=== PATIENT | female | born 1985 | race African-American/Black ===

== ENCOUNTER 2022-07-17 17:52 | Inpatient (IN) | payer MEDICAID ==
[~2022-07-17] VITALS: Ht 157.5 cm; Wt 67.1 kg
[2022-07-17] MEDS ORDERED: NOREPINEPHRINE 8MG/250ML PMX 250 ML IV ONE (18:00)
[2022-07-17] MEDS ORDERED: PIPERACILLIN/TAZ 3.375G PREMIX 50 ML IV ONE (18:15)
[2022-07-17] MEDS ORDERED: VANCOMYCIN 1G PREMIX 200 ML IV ONE (18:15)
[2022-07-17] MEDS ORDERED: OCTREOTIDE 1,000 MCG in SODIUM CHLORIDE 0.9% 100 ML IV ONE (18:15)
[2022-07-17] MEDS ORDERED: SODIUM CHLORIDE 0.9% 1000ML BAG (SEPSIS BOLUS) IV ONE (18:15)
[2022-07-17] MEDS ORDERED: OCTREOTIDE 1,000 MCG in SODIUM CHLORIDE 0.9% 98 ML IV NR (18:21)
[2022-07-17 18:31] LABS: MEAN CORPUSCULAR HEMOGLOBIN 24.7 pg (28.0-32.0); MEAN CORPUSCULAR VOLUME 113.4 fL (81.0-99.0); MEAN PLATELET VOLUME 10.5 fl (7.4-10.4); PLATELET 179 x1000/uL (130-400); RED BLOOD CELL COUNT 0.56 mill/uL (4.2-5.4)
[2022-07-17 18:40] LABS: CHLORIDE 98 mEq/L (98-107)
[2022-07-17 18:42] LABS: D-DIMER 0.24 mg/L FEU (<0.50); INR 1.8; PROTHROMBIN TIME 18.8 sec (9.6-11.0)
[2022-07-17 18:44] LABS: BG CARBOXYHEMOGLOBIN 0.8 % (0.5-1.5); BG FRACTION INSPIRED OXYGEN 100; BG METHEMOGLOBIN 0.2 % (0.0-1.5); BG OXYGEN SATURATION 81.8 % (92.0-98.5); BG PH < 6.680 (7.350-7.450); BG PO2 72.4 mmHg (75.0-100.0); BG SAMPLE SITE RIGHT RADIAL; BG TOTAL HEMOGLOBIN 9.1 g/dL (12.0-18.0); BG VENT MODE VENT - AC
[2022-07-17] MEDS ORDERED: PANTOPRAZOLE SODIUM 40 MG/VIAL IV ONE (18:45)
[2022-07-17 18:50] LABS: ETHANOL BLOOD < 10 mg/dL
[2022-07-17 18:59] LABS: HEMATOCRIT. 6.3 % (36.0-48.0); HEMOGLOBIN. 1.4 g/dL (12.0-16.0)
[2022-07-17] MEDS ORDERED: CALCIUM CHLORIDE 1,000 MG in DEXT 5% WATER 90 ML IV ONE (19:15)
[2022-07-17] MEDS ORDERED: INSULIN REGULAR (HUMULIN R) 300UNITS/3ML VIAL IV NR ×2 (19:15→22:15)
[2022-07-17] MEDS ORDERED: SODIUM BICARBONATE 8.4% 1 MEQ/ML 50ML SYR IV NR ×3 (19:15→22:15)
[2022-07-17] MEDS ORDERED: SODIUM BICARBONATE 8.4% 1 MEQ/ML 50ML SYR IV ONE ×2 (19:15)
[2022-07-17 19:17] LABS: HCG SCREEN NEGATIVE
[2022-07-17] MEDS ORDERED: FENTANYL 2500MCG/250ML PMX 250 ML IV ONE (19:30)
[2022-07-17] MEDS ORDERED: MIDAZOLAM HCL 5 MG/5 ML VIAL IV ONE (19:45)
[2022-07-17] MEDS ORDERED: MIDAZOLAM HCL 2 MG/2 ML VIAL IV NR (19:45)
[2022-07-17] MEDS ORDERED: SODIUM BICARBONATE 100 MEQ in DEXTROSE 5% WATER 1,000 ML IV SCH (19:45)
[2022-07-17] MEDS ORDERED: FENTANYL CITRATE/PF 2,500 MCG in SODIUM CHLORIDE 0.9% 200 ML IV NR (19:45)
[2022-07-17] MEDS ORDERED: INSULIN REGULAR (HUMULIN R) 300UNITS/3ML VIAL IV ONE (19:45)
[2022-07-17] MEDS ORDERED: ALBUTEROL (0.083%) 2.5MG/3ML NEB HHN ONE (19:45)
[2022-07-17] MEDS ORDERED: MIDAZOLAM HCL 2 MG/2 ML VIAL IV PRN (21:00)
[2022-07-17] MEDS ORDERED: DEXTROSE 50% WATER 50ML SYRINGE IV NR (22:15)
[2022-07-17] MEDS ORDERED: IPRATROPIUM/ALBUTEROL 0.5-3(2.5)MG/3ML NEB HHN PRN (22:15)
[2022-07-17 22:45] LABS: BG BASE EXCESS -23.4 mmol/L (-2.0-2.0); BG CARBOXYHEMOGLOBIN 0.1 % (0.5-1.5); BG DEOXYHEMOGLOBIN 0.7 % (0.0-5.0); BG FRACTION INSPIRED OXYGEN 100; BG HCO3 ACT 7.4 mmol/L (22.0-26.0); BG METHEMOGLOBIN 1.1 % (0.0-1.5); BG OXYGEN SATURATION 99.3 % (92.0-98.5); BG OXYHEMOGLOBIN 98.1 % (94.0-97.0); BG PCO2 35.6 mmHg (35.0-45.0); BG PH 6.937 (7.350-7.450); BG PO2 288.1 mmHg (75.0-100.0); BG SAMPLE SITE RIGHT RADIAL; BG TOTAL HEMOGLOBIN 8.7 g/dL (12.0-18.0); BG VENT MODE VENT - AC
[2022-07-18] VITALS (96 sets, daily range): BP systolic 50–159; BP diastolic 19–87
[2022-07-18] MEDS ORDERED: PANTOPRAZOLE 80 MG in SODIUM CHLORIDE 0.9% 100 ML IV SCH ×2
[2022-07-18 00:44] LABS: NUCLEATED RED BLOOD CELLS 5 /100 WBC; PLATELET ESTIMATE NORMAL
[2022-07-18] MEDS ORDERED: CEFTRIAXONE 2 G PREMIX 50 ML IV SCH (01:15)
[2022-07-18] MEDS ORDERED: CEFTRIAXONE 2 G in DEXTROSE 5% WATER 50 ML IV SCH (02:00)
[2022-07-18] MEDS: PANTOPRAZOLE 80 MG in SODIUM CHLORIDE 0.9% 100 ML IV SCH ×2 (02:15→11:18)
[2022-07-18 02:27] LABS: BG BASE EXCESS -17.2 mmol/L (-2.0-2.0); BG CARBOXYHEMOGLOBIN 0.3 % (0.5-1.5); BG DEOXYHEMOGLOBIN 4.9 % (0.0-5.0); BG FRACTION INSPIRED OXYGEN 50; BG HCO3 ACT 11.1 mmol/L (22.0-26.0); BG METHEMOGLOBIN 0.5 % (0.0-1.5); BG OXYGEN SATURATION 95.1 % (92.0-98.5); BG OXYHEMOGLOBIN 94.3 % (94.0-97.0); BG PCO2 35.5 mmHg (35.0-45.0); BG PH 7.114 (7.350-7.450); BG PO2 84.1 mmHg (75.0-100.0); BG SAMPLE SITE RIGHT RADIAL; BG TOTAL HEMOGLOBIN 10.8 g/dL (12.0-18.0); BG VENT MODE VENT - APRV
[2022-07-18] MEDS ORDERED: LACTATED RINGERS 1,000 ML IV ONE (02:45)
[2022-07-18] MEDS ORDERED: SODIUM BICARBONATE 8.4% 1 MEQ/ML 50ML SYR IV NR (02:45)
[2022-07-18] MEDS ORDERED: LORAZEPAM 2MG/ML CPJ IV PRN (02:45)
[2022-07-18] MEDS: SODIUM BICARBONATE 150 MEQ in DEXTROSE 5% WATER 1,000 ML IV SCH ×3 (03:13→17:58)
[2022-07-18] MEDS: PHENYLEPHRINE 100 MG in DEXT 5% WATER 240 ML IV PRN ×3 (03:15→16:58)
[2022-07-18] MEDS: PROPOFOL 10MG/ML 100ML 100 ML IV PRN ×3 (03:17→19:48)
[2022-07-18] MEDS: VASOPRESSIN 20 UNIT in SODIUM CHLORIDE 0.9% 99 ML IV PRN ×3 (04:16→22:23)
[2022-07-18 05:31] LABS: BG CARBOXYHEMOGLOBIN 0.3 % (0.5-1.5); BG FRACTION INSPIRED OXYGEN 50; BG METHEMOGLOBIN 0.4 % (0.0-1.5); BG OXYHEMOGLOBIN 95.3 % (94.0-97.0); BG PCO2 33.1 mmHg (35.0-45.0); BG PH 7.329 (7.350-7.450); BG PO2 86.9 mmHg (75.0-100.0); BG SAMPLE SITE LEFT RADIAL; BG TOTAL HEMOGLOBIN 10.1 g/dL (12.0-18.0); BG VENT MODE VENT - AC
[2022-07-18] MEDS: NOREPINEPHRINE 32 MG in DEXT 5% WATER 218 ML IV PRN ×2 (06:23→22:23)
[2022-07-18 07:16] LABS: HEMATOCRIT. 29.1 % (36.0-48.0); HEMOGLOBIN. 9.5 g/dL (12.0-16.0); MEAN CORPUSCULAR HEMOGLOBIN 30.1 pg (28.0-32.0); MEAN CORPUSCULAR VOLUME 92.1 fL (81.0-99.0); MEAN PLATELET VOLUME 9.6 fl (7.4-10.4); PLATELET 97 x1000/uL (130-400); RED BLOOD CELL COUNT 3.17 mill/uL (4.2-5.4); RED CELL DISTRIBUTION WIDTH 14.8 % (11.6-14.6)
[2022-07-18] MEDS ORDERED: LIDOCAINE HCL/PF 1% 10 MG/ML 5ML VIAL ONE (07:52)
[2022-07-18] MEDS: IPRATROPIUM/ALBUTEROL 0.5-3(2.5)MG/3ML NEB HHN SCH ×3 (09:00→22:06)
[2022-07-18] MEDS: LEVETIRACETAM 1000MG PREMIX 100 ML IV SCH ×2 (09:30→20:37)
[2022-07-18 11:11] LABS: PHOSPHORUS 8.1 mg/dL (2.5-4.9)
[2022-07-18] MEDS ORDERED: CALCIUM GLUCONATE 1000 MG in DEXTROSE 5% WATER 100 ML IV NR (13:00)
[2022-07-18] MEDS ORDERED: CALCIUM GLUCONATE 1GM PREMIX 50 ML IV NR (13:00)
[2022-07-18] MEDS ORDERED: MAGNESIUM 2 G PREMIX 50 ML IV NR (13:00)
[2022-07-18 13:12] LABS: HEMATOCRIT 27.1 % (36.0-48.0)
[2022-07-18] MEDS: AMPICILLIN SOD/SULBACTAM NA 3 G in SODIUM CHLORIDE 0.9% 100 ML IV SCH (13:51)
[2022-07-18 13:59] LABS: NUCLEATED RED BLOOD CELLS 5 /100 WBC; PLATELET ESTIMATE DECREASED
[2022-07-18 14:59] LABS: HEPATITIS B SURFACE ANTIGEN NEGATIVE
[2022-07-18] MEDS ORDERED: DAPTOMYCIN 400 MG in SODIUM CHLORIDE 0.9% 50 ML IV SCH (15:00)
[2022-07-18 15:10] LABS: CLARITY URINE TURBID (CLEAR); COLOR URINE YELLOW (YELLOW); KETONES URINE NEGATIVE (NEGATIVE); LEUKOCYTE ESTERASE URINE 3+ (NEGATIVE); NITRITE URINE NEGATIVE (NEGATIVE); OCCULT BLOOD URINE 3+ (NEGATIVE); PH URINE 5.5 (4.5-8.0); PROTEIN URINE 2+ (NEGATIVE); UROBILINOGEN URINE 0.2 E.U./dL (0.2-1.0)
[2022-07-18] MEDS: OCTREOTIDE 1,000 MCG in SODIUM CHLORIDE 0.9% 98 ML IV SCH (15:56)
[2022-07-18] MEDS ORDERED: PHYTONADIONE 10MG/ML AMP SUBCUT NR (18:00)
[2022-07-18] MEDS: PANTOPRAZOLE SODIUM 40 MG/VIAL IV SCH (20:37)
[2022-07-18] MEDS: METOCLOPRAMIDE HCL 10MG/2ML VIAL IV SCH (22:26)
[2022-07-19] VITALS (87 sets, daily range): BP systolic 35–108; BP diastolic 24–67
[2022-07-19 01:21] LABS: HEMOGLOBIN 8.8 g/dL (12.0-16.0)
[2022-07-19 01:29] LABS: INR 3.1; PROTHROMBIN TIME 30.1 sec (9.6-11.0)
[2022-07-19] MEDS: PHENYLEPHRINE 100 MG in DEXT 5% WATER 240 ML IV PRN ×3 (01:57→16:55)
[2022-07-19] MEDS: IPRATROPIUM/ALBUTEROL 0.5-3(2.5)MG/3ML NEB HHN SCH ×4 (02:14→20:48)
[2022-07-19] MEDS: SODIUM BICARBONATE 150 MEQ in DEXTROSE 5% WATER 1,000 ML IV SCH ×3 (04:30→17:33)
[2022-07-19] MEDS: METOCLOPRAMIDE HCL 10MG/2ML VIAL IV SCH ×3 (05:32→22:00)
[2022-07-19 07:02] LABS: INR 3.5; PROTHROMBIN TIME 34.1 sec (9.6-11.0)
[2022-07-19 07:05] LABS: HEMATOCRIT. 22.7 % (36.0-48.0); HEMOGLOBIN. 7.2 g/dL (12.0-16.0); MEAN CORPUSCULAR HEMOGLOBIN 29.4 pg (28.0-32.0); MEAN CORPUSCULAR VOLUME 92.3 fL (81.0-99.0); MEAN PLATELET VOLUME 10.9 fl (7.4-10.4); PLATELET 88 x1000/uL (130-400); RED BLOOD CELL COUNT 2.46 mill/uL (4.2-5.4); RED CELL DISTRIBUTION WIDTH 15.6 % (11.6-14.6)
[2022-07-19 07:11] LABS: CHLORIDE 92 mEq/L (98-107)
[2022-07-19 08:16] LABS: BG BASE EXCESS -15.6 mmol/L (-2.0-2.0); BG CARBOXYHEMOGLOBIN 0.4 % (0.5-1.5); BG HCO3 ACT 10.5 mmol/L (22.0-26.0); BG METHEMOGLOBIN 0.3 % (0.0-1.5); BG OXYHEMOGLOBIN 93.3 % (94.0-97.0); BG PCO2 25.7 mmHg (35.0-45.0); BG PH 7.231 (7.350-7.450); BG PO2 87.4 mmHg (75.0-100.0); BG SAMPLE SITE RIGHT BRACHIAL; BG TOTAL HEMOGLOBIN 6.2 g/dL (12.0-18.0); BG VENT MODE VENT - AC
[2022-07-19] MEDS: VASOPRESSIN 20 UNIT in SODIUM CHLORIDE 0.9% 99 ML IV PRN ×2 (08:57→21:00)
[2022-07-19] MEDS: NOREPINEPHRINE 32 MG in DEXT 5% WATER 218 ML IV PRN ×2 (08:58→16:55)
[2022-07-19] MEDS: LEVETIRACETAM 1000MG PREMIX 100 ML IV SCH ×2 (09:03→22:42)
[2022-07-19] MEDS: PANTOPRAZOLE SODIUM 40 MG/VIAL IV SCH ×2 (09:03→22:42)
[2022-07-19] MEDS ORDERED: DEXTROSE 50% WATER 50ML SYRINGE IV SCH ×2 (09:45→11:00)
[2022-07-19] MEDS ORDERED: SODIUM BICARBONATE 8.4% 1 MEQ/ML 50ML SYR IV ONE (11:00)
[2022-07-19] MEDS ORDERED: DEXTROSE 50% WATER 50ML SYRINGE IV PRN (11:00)
[2022-07-19] MEDS ORDERED: CALCIUM GLUCONATE 1GM PREMIX 50 ML IV SCH (11:00)
[2022-07-19] MEDS: OCTREOTIDE 1,000 MCG in SODIUM CHLORIDE 0.9% 98 ML IV SCH (12:55)
[2022-07-19 13:26] LABS: HEMATOCRIT 21.2 % (36.0-48.0)
[2022-07-19 13:36] LABS: PROTHROMBIN TIME 39.1 sec (9.6-11.0)
[2022-07-19 13:42] LABS: HEMOGLOBIN 6.7 g/dL (12.0-16.0); INR 4.1
[2022-07-19] MEDS: AMPICILLIN SOD/SULBACTAM NA 3 G in SODIUM CHLORIDE 0.9% 100 ML IV SCH (14:44)
[2022-07-20] MEDS ORDERED: LEVETIRACETAM 1,000 MG in SODIUM CHLORIDE 0.9% 100 ML IV SCH (21:00)
[2022-07-21 09:50] LABS: NUCLEATED RED BLOOD CELLS 17 /100 WBC
[2022-07-21 09:51] LABS: PLATELET ESTIMATE DECREASED
== END 2022-07-20 06:00 | DRG 720 ==
LOC: ER 17:52 → MICUNO 19:07 → EDBEDREQ 19:27 → ENRESERV 22:16
PROVIDERS: ADMIT Internal Medicine; ATTEND Internal Medicine
PROC: 5A12012 Performance of Cardiac Output, Single, Manual (ICD-10-PCS; 2022-07-17)
PROC: 30233K1 Transfusion of Nonautologous Frozen Plasma into Peripheral Vein, Percutaneous Approach (ICD-10-PCS; 2022-07-17)
PROC: 30233R1 Transfusion of Nonautologous Platelets into Peripheral Vein, Percutaneous Approach (ICD-10-PCS; 2022-07-17)
PROC: 0BH17EZ Insertion of Endotracheal Airway into Trachea, Via Natural or Artificial Opening (ICD-10-PCS; 2022-07-17)
PROC: 5A1945Z Respiratory Ventilation, 24-96 Consecutive Hours (ICD-10-PCS; 2022-07-17)
PROC: 3E0A3GC Introduction of Other Therapeutic Substance into Bone Marrow, Percutaneous Approach (ICD-10-PCS; 2022-07-17)
PROC: 05HY33Z Insertion of Infusion Device into Upper Vein, Percutaneous Approach (ICD-10-PCS; 2022-07-18)
PROC: B54MZZA Ultrasonography of Right Upper Extremity Veins, Guidance (ICD-10-PCS; 2022-07-18)
PROC: 30233N1 Transfusion of Nonautologous Red Blood Cells into Peripheral Vein, Percutaneous Approach (ICD-10-PCS; principal; 2022-07-19)
PROC: 4A00X4Z Measurement of Central Nervous Electrical Activity, External Approach (ICD-10-PCS; 2022-07-19)
DX: A41.9 Sepsis, unspecified organism (principal); I46.9 Cardiac arrest, cause unspecified; J96.01 Acute respiratory failure with hypoxia; D68.9 Coagulation defect, unspecified; R65.21 Severe sepsis with septic shock; R57.8 Other shock; E43 Unspecified severe protein-calorie malnutrition; E83.39 Other disorders of phosphorus metabolism; E87.20 Acidosis, unspecified; E83.51 Hypocalcemia; E87.1 Hypo-osmolality and hyponatremia; N17.9 Acute kidney failure, unspecified; E87.5 Hyperkalemia; K70.30 Alcoholic cirrhosis of liver without ascites; D53.9 Nutritional anemia, unspecified; D69.6 Thrombocytopenia, unspecified; E83.42 Hypomagnesemia; G93.1 Anoxic brain damage, not elsewhere classified; Z20.822 Contact with and (suspected) exposure to COVID-19; F10.10 Alcohol abuse, uncomplicated; R00.1 Bradycardia, unspecified; K92.0 Hematemesis; J18.9 Pneumonia, unspecified organism; K72.90 Hepatic failure, unspecified without coma; Y90.9 Presence of alcohol in blood, level not specified; Z68.27 Body mass index [BMI] 27.0-27.9, adult
CPT/HCPCS: 31500; 36415; 36573; 36600; 71045; 76700; 76770; 80048; 80053; 80076; 80320; 81003; 82140; 82270; 82330; 82375; 82550; 82570; 82805; 82962; 83605; 83615; 83735; 83880; 83970; 84100; 84145; 84300; 84478; 84484; 84703; 85014; 85018; 85025; 85049; 85379; 85384; 86705; 86709; 86803; 86850; 86900; 86920; 86927; 87077; 87186; 87340; 87426; 93005; 94003; 94640; 95816; 99291; A6261; C1725; C1769; C9113; J0295; J0610; J0696; J0878; J1815; J1953; J2250; J2354; J2370; J2543; J2704; J2765; J3010; J3370; J3430; J3475; J3490; J7030; J7050; J7060; J7070; P9016; P9017; P9034; G0480